=== PATIENT | female | born 1990 | race Caucasian/White ===

== ENCOUNTER 2022-11-16 17:09 | Emergency (ER) | payer SELFPAY ==
[2022-11-16 17:22] VITALS: BP 127/92; PULSE 126; RESP 14; TEMP 37.1; O2SAT 100; BMI 16.7
[2022-11-16] MEDS: ONDANSETRON 4 MG/2 ML INJ IV (17:41)
[2022-11-16 17:47] LABS: Add Manual Diff / Slide Review NO; Basophils Absolute Auto 0 /uL (0-100); Basophils Percent Auto 0.1 % (0-2); Eosinophils Absolute Auto 0 /uL (0-450); Hematocrit 39.9 % (36-46); Hemoglobin 13.9 g/dL (12.0-16.0); Lymphocytes Absolute Auto 500 /uL (1100-4500); Lymphocytes Percent Auto 3.9 % (25-40); Mean Corpuscular HGB Conc 34.7 % (30-36); Mean Corpuscular Hemoglobin 33.1 PG (26-34); Mean Corpuscular Volume 95.4 fL (80-100); Monocytes Absolute Auto 1200 /uL (0-900); Monocytes Percent Auto 9.2 % (3-14); Neutrophils Absolute Auto 11000 /uL (1500-7000); Neutrophils Percent Auto 86.8 % (50-75); Platelet Count 285 X10^3/uL (150-400); Red Blood Cell Count 4.19 X10^6/uL (4.0-5.2); White Blood Cell Count 12.7 X10^3/uL (4.5-11.0)
--- NOTE | 2022-11-16 17:47 | DI.CT.S_ITS ---
PROCEDURE: CT KIDNEY URETER BLADDER (KUB) INDICATIONS: flank pain, hx kidney stones TECHNIQUE: Axial sections were acquired from the lung bases to the pubic symphysis. Coronal and sagittal reformats were performed. For radiation dose reduction, the following was used: automated exposure control, adjustment of mA and/or kV according to patient size. COMPARISON: None. FINDINGS: Image quality: Excellent. Lung bases: Unremarkable. Heart: No significant findings. URINARY: Kidneys and ureters: There may be subtle left renal enlargement compared to the right and slight left hydronephrosis. The right kidney is normal size. No retained calculi in either kidney. No visible left-sided hydroureter and no definite ureteral calculi. Right ureter was not well seen, decompressed. Bladder: Decompressed. Normal wall thickness.. No stones. There are pelvic phleboliths. ABDOMEN: Liver: Unremarkable. Gallbladder: Unremarkable. Biliary ducts: Unremarkable. Pancreas: Unremarkable. Spleen: Unremarkable. Adrenal Glands: Unremarkable. Stomach and Bowel: Stomach, small bowel loops, and colon are unremarkable. Peritoneum: No abnormal intraperitoneal fluid. No free air. Ventral Wall: No hernia. Abdominal Nodes: No enlarged retroperitoneal or mesenteric lymph nodes. Vessels: Aorta and inferior vena cava are normal in size. PELVIS: Pelvic Organs: Anteverted uterus has a normal appearance. Ovaries are not well seen. Pelvic Nodes: No bulky adenopathy. Miscellaneous: No inguinal hernias are seen. Bones: Unremarkable. IMPRESSION: 1. Findings of mild left hydronephrosis. No visible urinary calcifications. This may indicate recently passed calculus or obstruction with non radiodense material. 2. No other acute findings. Dictated by: Vanna Bedolla M.D. on 11/16/2022 at 18:33 Approved by: Vanna Bedolla M.D. on 11/16/2022 at 18:38
--- NOTE | 2022-11-16 17:50 | ED_ITS ---
HPI - Abdominal Pain General Chief Complaint: Abdominal Pain Stated Complaint: back pain, abd pain, nausea,headache Time Seen by Provider: 11/16/22 17:39 Source: patient Mode of arrival: Ambulatory History of Present Illness HPI narrative: This is a 32-year-old female presents to the emergency department complaining of low back pain that started last night and has progressed this morning, states it started radiating around her abdomen. States that she has a history of kidney stones and this feels similar. She complains of a headache, denies dysuria, urinary frequency or urgency, endorses nausea without vomiting. Patient states that her pain started back on bilateral sides, progressed her abdomen today, she complains of lower abdominal pain, and left lower back pain. She endorses nausea without vomiting, denies history of abdominal surgery, last menstrual period was October 27, denies dysuria, urinary frequency or urgency, abnormal vaginal discharge. Endorses having a headache. Related Data Previous Rx's Medication Instructions Recorded hydrocodone 5 mg-acetaminophen 325 1 tab PO Q6H PRN pain #10 tabs 11/16/22 mg tablet ibuprofen 600 mg tablet 600 mg PO Q6H PRN pain #30 tabs 11/16/22 ondansetron 4 mg disintegrating 4 mg PO Q8H PRN nausea and 11/16/22 tablet vomiting #10 tabs Allergies Allergy/AdvReac Type Severity Reaction Status Date / Time No Known Drug Allergies Allergy Verified 11/18/22 20:36 Review of Systems Review of Systems ROS Unobtainable: All systems reviewed & are unremarkable except as noted in HPI and below Patient History Social History Smoking Status: Current every day smoker Smoking Status: Current every day smoker alcohol intake frequency: a few times a week Substance Use Type: does not use Exam Narrative Exam Narrative: Reviewed vitals signs and nursing notes. General: Pleasant, sitting upright, in no acute distress, well groomed, afebrile HEENT: symmetrical facial expressions, moist mucous membranes, neck is supple CV: regular rate and rhythm, warm extremities Respiratory: normal work of breathing, without tachypnea or hypoxia. GI: abdomen soft, nondistended, without CVA tenderness bilaterally. MSK: moves all extremities, no weakness, normal tone, ambulatory without deficit Skin: brisk capillary refill, without rash or wound Neuro: clear speech and normal cognition, A&O x3, GCS 15, no focal motor or sensation deficits Initial Vital Signs Initial Vital Signs: Vital Signs Temperature 98.8 F 11/16/22 17:22 Pulse Rate 126 H 11/16/22 17:22 Respiratory Rate 14 11/16/22 17:22 Blood Pressure 127/92 H 11/16/22 17:22 Pulse Oximetry 100 11/16/22 17:22 Oxygen Delivery Method Room Air 11/16/22 17:22 Course Orders Ordered: Discontinued Medications Hydromorphone HCl (Hydromorphone 0.5 Mg Inj) 0.5 mg IV NOW ONE Stop: 11/16/22 18:17 Last Admin: 11/16/22 18:43 Dose: 0.5 mg Documented By: MATIAS Lactated Ringer's (Lactated Ringers) 1,000 mls @ 1,000 mls/hr IV BOLUS ONE Stop: 11/16/22 18:46 Last Infusion: 11/16/22 19:12 Dose: 0 mls/hr Documented By: Admin: 11/16/22 17:55 Dose: 1,000 mls/hr Documented By: CUCA Ceftriaxone Sodium 1,000 mg/ (Sodium Chloride) 100 mls @ 200 mls/hr IV NOW ONE Stop: 11/16/22 18:57 Ketorolac Tromethamine (Ketorolac 30 Mg/Ml Vial) 15 mg IM NOW ONE Stop: 11/16/22 17:48 Last Admin: 11/16/22 17:54 Dose: 15 mg Documented By: CUCA Ondansetron HCl (Ondansetron 4 Mg Odt) 4 mg PO NOW PRN PRN Reason: Nausea And Vomiting Ondansetron HCl (Ondansetron 4 Mg/2 Ml Inj) 4 mg IV NOW PRN PRN Reason: Nausea And Vomiting Last Admin: 11/16/22 17:41 Dose: 4 mg Documented By: CUCA Trimethoprim/Sulfamethoxazole (Trimeth/Sulfa 160/800 (Ds) Tablet) 1 tab PO NOW ONE Stop: 11/16/22 19:01 Last Admin: 11/16/22 19:11 Dose: 1 tab Documented By: MATIAS Vital Signs Vital signs: Vital Signs - 8 hr 11/16/22 17:22 Temperature 98.8 F Pulse Rate 126 H Respiratory Rate 14 Blood Pressure 127/92 H Pulse Oximetry 100 Oxygen Delivery Method Room Air MDM - Abdominal Pain Lab Data 11/16/22 17:32 11/16/22 17:32 Labs: Lab Results 11/16/22 11/16/22 11/16/22 Range/Units 17:32 17:32 17:32 WBC 12.7 H (4.5-11.0) X10^3/uL RBC 4.19 (4.0-5.2) X10^6/uL Hgb 13.9 (12.0-16.0) g/dL Hct 39.9 (36-46) % MCV 95.4 (80-100) fL MCH 33.1 (26-34) PG MCHC 34.7 (30-36) % RDW 13.0 (11.6-14.8) % Plt Count 285 (150-400) X10^3/uL Neut % (Auto) 86.8 H (50-75) % Lymph % (Auto) 3.9 L (25-40) % [place] % (Auto) 9.2 (3-14) % Eos % (Auto) 0.0 L (2-4) % Baso % (Auto) 0.1 (0-2) % Neut # (Auto) 77501 H (0586-9461) /uL Lymph # (Auto) 500 L (2682-8060) /uL [place] # (Auto) 1200 H (0-900) /uL Eos # (Auto) 0 (0-450) /uL Baso # (Auto) 0 (0-100) /uL Sodium 132 L (137-145) mmol/L Potassium 4.2 (3.4-5.1) mmol/L Chloride 95 L (98-107) mmol/L Carbon Dioxide 29 (22-32) mmol/L BUN 6 L (7-17) mg/dL Creatinine 0.63 (0.52-1.04) mg/dL Estimated GFR > 60 (>60) mL/min BUN/Creatinine Ratio 9.5 (6-22) Glucose 107 H (70-100) mg/dL Lactate 0.9 (0.7-2.1) mmol/L Calcium 9.2 (8.4-10.2) mg/dL Total Bilirubin 0.6 (0.2-1.3) mg/dL AST 31 (14-36) IU/L ALT 22 (<35) IU/L Alkaline Phosphatase 103 (38-126) U/L Total Protein 8.0 (6.3-8.2) g/dL Albumin 4.3 (3.5-5.0) g/dL Globulin 3.7 (1.7-4.1) g/dL Albumin/Globulin Ratio 1.2 (1.0-2.8) Lipase 38 (23-300) U/L Urine RBC (0-5/HPF) Urine WBC (0-5/HPF) Ur Squamous Epith Cells (0-5/HPF) Ur Transition Epith Cell (0-5/HPF) Urine Bacteria (None) Ur Culture Indicated? 11/16/22 Range/Units 17:46 WBC (4.5-11.0) X10^3/uL RBC (4.0-5.2) X10^6/uL Hgb (12.0-16.0) g/dL Hct (36-46) % MCV (80-100) fL MCH (26-34) PG MCHC (30-36) % RDW (11.6-14.8) % Plt Count (150-400) X10^3/uL Neut % (Auto) (50-75) % Lymph % (Auto) (25-40) % [place] % (Auto) (3-14) % Eos % (Auto) (2-4) % Baso % (Auto) (0-2) % Neut # (Auto) (6910-9020) /uL Lymph # (Auto) (3535-4119) /uL [place] # (Auto) (0-900) /uL Eos # (Auto) (0-450) /uL Baso # (Auto) (0-100) /uL Sodium (137-145) mmol/L Potassium (3.4-5.1) mmol/L Chloride (98-107) mmol/L Carbon Dioxide (22-32) mmol/L BUN (7-17) mg/dL Creatinine (0.52-1.04) mg/dL Estimated GFR (>60) mL/min BUN/Creatinine Ratio (6-22) Glucose (70-100) mg/dL Lactate (0.7-2.1) mmol/L Calcium (8.4-10.2) mg/dL Total Bilirubin (0.2-1.3) mg/dL AST (14-36) IU/L ALT (<35) IU/L Alkaline Phosphatase (38-126) U/L Total Protein (6.3-8.2) g/dL Albumin (3.5-5.0) g/dL Globulin (1.7-4.1) g/dL Albumin/Globulin Ratio (1.0-2.8) Lipase (23-300) U/L Urine RBC 5-10/hpf H (0-5/HPF) Urine WBC 30-100/hpf H (0-5/HPF) Ur Squamous Epith Cells 5-10 /hpf H (0-5/HPF) Ur Transition Epith Cell 1-5/hpf (0-5/HPF) Urine Bacteria Many (>30) H (None) Ur Culture Indicated? Specimen cultured Point of care testing: Point of Care Testing Test Results Negative Urine Dip Bedside Urine Glucose Negative Bedside Urine Bilirubin - Negative Bedside Urine Ketone - Negative Urine Specific [place] 1.010 Bedside Urine Occult Blood +/- Bedside Urine pH 6.0 Bedside Urine Protein - Negative Bedside Urine Urobilinogen - Negative Bedside Urine Nitrite - Negative Bedside Urine Leukocytes - Negative Esterase Imaging Data CT scan - abdomen/pelvis: Radiologist's Impression: PROCEDURE:? CT KIDNEY URETER BLADDER (KUB) ? INDICATIONS:? flank pain, hx kidney stones ? TECHNIQUE:? Axial sections were acquired from the lung bases to the pubic symphysis.? Coronal and sagittal reformats were performed.? For radiation dose reduction, the following was used: ?automated exposure control, adjustment of mA and/or kV according to patient size.? ? COMPARISON:? None. ? FINDINGS:? Image quality:? Excellent.? ? Lung bases:? Unremarkable.? ? Heart:? No significant findings. ? URINARY: Kidneys and ureters:? There may be subtle left renal enlargement compared to the right and slight left hydronephrosis.? The right kidney is normal size.? No retained calculi in either kidney.? No visible left-sided hydroureter and no definite ureteral calculi.? Right ureter was not well seen, decompressed. ? Bladder:? Decompressed.? Normal wall thickness.. No stones.? There are pelvic phleboliths. ? ABDOMEN: Liver:? Unremarkable.? ? Gallbladder:? Unremarkable.? ? Biliary ducts:? Unremarkable.? ? Pancreas:? Unremarkable.? ? Spleen:? Unremarkable.? ? Adrenal Glands:? Unremarkable.? ? ? Stomach and Bowel:? Stomach, small bowel loops, and colon are unremarkable.? Peritoneum:? No abnormal intraperitoneal fluid.? No free air.? ? Ventral Wall: ? No hernia.? Abdominal Nodes:? No enlarged retroperitoneal or mesenteric lymph nodes.? Vessels:? Aorta and inferior vena cava are normal in size.? ? PELVIS: Pelvic Organs:? Anteverted uterus has a normal appearance.? Ovaries are not well seen. Pelvic Nodes:? No bulky adenopathy. Miscellaneous: No inguinal hernias are seen. ? ? ? Bones:? Unremarkable. ? IMPRESSION:? ? 1. Findings of mild left hydronephrosis.? No visible urinary calcifications.? This may indicate recently passed calculus or obstruction with non radiodense material. ? 2. No other acute findings.? Dictated by: Vanna Bedolla M.D. on 11/16/2022 at 18:33 ? ? Approved by: Vanna Bedolla M.D. on 11/16/2022 at 18:38 ? MDM Narrative Medical decision making narrative: Chief Complaint: back pain, abdominal pain Multiple etiologies for patient's complaint considered including, but not limited to: Nephrolithiasis, pyelonephritis, urinary tract infection, pancreatitis, cholecystitis, obstructive uropathy I have independently reviewed the patient's vital signs and nursing notes as well as prior records if available. Plan: Pain control with Toradol and Dilaudid, 1 L lactated Ringer's, lab work including lactate Pt presents with tachycardia and lab work shows leukocytosis Course of Care: Urine dip was negative for abnormality, patient had left CVA tenderness on exam, no abdominal tenderness to palpation, CT KUB shows mild left hydronephrosis without urinary calcifications, likely recently passed calculus, no other acute findings, her urine microscopy shows WBCs, blood and bacteria, this was cultured, patient has leukocytosis of 12.7 with a left shift, mild hyponatremia of 132 without abnormal neurologic finding on exam, normal creatinine and GFR over 60, normal liver enzymes and lipase. Patient was ester ated with 1 L of lactated Ringer's, Zofran, Dilaudid and Toradol, states that her pain was markedly improved after the Toradol in Dilaudid. She is encouraged to stay hydrated, finish her antibiotic course, will treat with Bactrim b.i.d. x7 days, Zofran, ibuprofen and hydrocodone as needed for pain. Encouraged stool softener and gave patient contact information to establish primary care locally. Social considerations that may affect disposition: none Questions are addressed and there is agreement with the plan and for follow-up. I consulted with the ED attending physician Dr. Sepulveda as needed for higher level of care considerations and they were available for discussion and recommendations regarding plan of care and diagnostic testing. Patient is appropriate for outpatient management. Discharge Plan Departure Patient Disposition: Home Clinical Impression: UTI (urinary tract infection), Hydronephrosis of left kidney Instructions: DI for Kidney Infection, DI for Kidney Stones Activity Restrictions/Additional Instructions: *You have been diagnosed with a urinary tract infection with evidence of a likely recently passed kidney stone on the left side which consists with your pa in on the left side when we felt your left kidney. I am sorry for your symptoms, hopefully you start feeling better soon, please finish these antibiotics, stay hydrated, use Zofran as needed for nausea, come back to the emergency department if you have worsening pain, nausea vomiting. There no oth er stones visualized on the CT scan today. There is a small amount of swelling to the left kidney but this should start getting better already. Please establish care with a primary care provider from your insurance or 1 of the primary care providers here at [facility], the phone number is listed below. Please take ibuprofen 600 mg every 6 hours starting tomorrow, please take it with food so that you do not develop an ulcer. Use pain pills as tolerated, use a stool softener to prevent worsening pain and constipation. Zofran as needed for nausea and antibiotic twice a day for 7 days. *What to do: *Please continue to take your regular medications as directed. [x ] New medication prescriptions sent to your pharmacy: [[facility] ] [ ] New medication written as a paper prescription [ ] No new medications given *Please call and schedule follow up with your primary care provider in 2-3 days, at least for an update. Let them know you were seen in the Emergency Department for the above problem. We will electronically transmit a record of today's note if your PCP or specialist is in our system. *If you do not have a primary care provider please contact [phone] to establish care with one of the [facility] primary care providers. *Return to the Emergency Department for worsening symptoms, inability to keep liquids down, fever greater than 101F, chills, or other concerning symptom. Prescriptions: New ondansetron 4 mg tablet,disintegrating 4 mg PO Q8H PRN (Reason: nausea and vomiting) Qty: 10 0RF hydrocodone-acetaminophen 5-325 mg tablet 1 tab PO Q6H PRN (Reason: pain) Qty: 10 0RF ibuprofen 600 mg tablet 600 mg PO Q6H PRN (Reason: pain) Qty: 30 0RF Stand Alone Forms: Patient Portal/API
[2022-11-16] MEDS: KETOROLAC 30 MG/ML VIAL 15 MG IM (17:54)
[2022-11-16] MEDS: LACTATED RINGERS 1,000 ML 1000 ML IV (17:55)
[2022-11-16 18:02] LABS: Alanine Aminotransferase 22 IU/L (<35); Albumin 4.3 g/dL (3.5-5.0); Albumin Globulin Ratio 1.2 (1.0-2.8); Alkaline Phosphatase 103 U/L (38-126); Aspartate Aminotransferase 31 IU/L (14-36); BUN Creatinine Ratio 9.5 (6-22); Bilirubin Total 0.6 mg/dL (0.2-1.3); Blood Urea Nitrogen 6 mg/dL (7-17); Calcium 9.2 mg/dL (8.4-10.2); Carbon Dioxide 29 mmol/L (22-32); Chloride 95 mmol/L (98-107); Estimated Glomerular Filt Rate > 60 mL/min (>60); Globulin 3.7 g/dL (1.7-4.1); Glucose 107 mg/dL (70-100); HEMOLYSIS < 15 (0-50); Lipase 38 U/L (23-300); Potassium 4.2 mmol/L (3.4-5.1); Sodium 132 mmol/L (137-145)
[2022-11-16 18:15] LABS: Bacteria Urine Many (>30); Culture Indicated Urine Specimen Cultured; RBC Urine 5-10/HPF (0-5/HPF); Squamous Epithelial Cell Urine 5-10 /HPF (0-5/HPF); Transitional Epi Cells Urine 1-5/HPF (0-5/HPF); WBC Urine 30-100/HPF (0-5/HPF)
[2022-11-16 18:17] LABS: Lactate (Lactic Acid) 0.9 mmol/L (0.7-2.1)
[2022-11-16] MEDS: HYDROMORPHONE 0.5 MG INJ IV (18:43)
[2022-11-16] MEDS: TRIMETH/SULFA 160/800 (DS) TABLET 1 TAB PO (19:11)
[2022-11-16 19:18] VITALS: BP 131/84; PULSE 98; RESP 18; O2SAT 100
== END 2022-11-16 19:20 | disposition home or self-care (01) ==
PROVIDERS: Emergency Medicine; Emergency Provider Nurse Practitioner Critical Care Medicine
DX: N13.30 Unspecified hydronephrosis (principal); N39.0 Urinary tract infection, site not specified; R10.9 Unspecified abdominal pain
CPT/HCPCS: 36415; 74176; 80053; 81003; 81015; 81025; 83605; 83690; 85025; 87077; 87086; 87186; 96361; 96372; 96374; 96375; 99284; J1170; J1885; J2405

== ENCOUNTER 2022-11-18 20:26 | Emergency (ER) | payer SELFPAY ==
[2022-11-18] VITALS (10 sets, daily range): BP systolic 106–152; BP diastolic 61–92; PULSE 119–127; RESP 17–18; TEMP 38.3; O2SAT 94–100
--- NOTE | 2022-11-18 20:45 | PC.NURSE ---
pt has been taking bactrim for a UTI dx on Mon today she passed out in the shower hitting her head, she thinks she was out for a few minutes which scared her as she was at home alone. pt states she thought she was starting to feel better today until the syncopal episode. her temp today was 100.4
[2022-11-18 20:52] LABS: Add Manual Diff / Slide Review NO; Basophils Absolute Auto 0 /uL (0-100); Basophils Percent Auto 0.1 % (0-2); Eosinophils Absolute Auto 0 /uL (0-450); Eosinophils Percent Auto 0.4 % (2-4); Hematocrit 33.2 % (36-46); Hemoglobin 11.4 g/dL (12.0-16.0); Lymphocytes Absolute Auto 500 /uL (1100-4500); Lymphocytes Percent Auto 5.4 % (25-40); Mean Corpuscular HGB Conc 34.2 % (30-36); Mean Corpuscular Hemoglobin 32.9 PG (26-34); Mean Corpuscular Volume 96.1 fL (80-100); Monocytes Absolute Auto 1300 /uL (0-900); Monocytes Percent Auto 13.6 % (3-14); Neutrophils Absolute Auto 7800 /uL (1500-7000); Neutrophils Percent Auto 80.5 % (50-75); Platelet Count 294 X10^3/uL (150-400); Red Blood Cell Count 3.45 X10^6/uL (4.0-5.2); Red Cell Distribution Width 13.2 % (11.6-14.8); White Blood Cell Count 9.7 X10^3/uL (4.5-11.0)
[2022-11-18] MEDS: SODIUM CHLORIDE 0.9% 1,000 ML 1000 ML IV ×2 (20:54→22:16)
[2022-11-18] MEDS: cefTRIAXone 1,000 MG in SODIUM CHLORIDE 0.9% 100 ML 200 MG IV (20:54)
[2022-11-18 21:02] LABS: HEMOLYSIS 16 (0-50); Potassium 4.7 mmol/L (3.4-5.1)
[2022-11-18 21:03] LABS: Alanine Aminotransferase 22 IU/L (<35); Albumin 3.6 g/dL (3.5-5.0); Albumin Globulin Ratio 1.1 (1.0-2.8); Alkaline Phosphatase 116 U/L (38-126); Aspartate Aminotransferase 34 IU/L (14-36); BUN Creatinine Ratio 12.9 (6-22); Bilirubin Total 0.2 mg/dL (0.2-1.3); Blood Urea Nitrogen 8 mg/dL (7-17); Calcium 8.8 mg/dL (8.4-10.2); Carbon Dioxide 26 mmol/L (22-32); Chloride 97 mmol/L (98-107); Estimated Glomerular Filt Rate > 60 mL/min (>60); Globulin 3.4 g/dL (1.7-4.1); Glucose 94 mg/dL (70-100); Lactate (Lactic Acid) 0.9 mmol/L (0.7-2.1); Sodium 131 mmol/L (137-145)
[2022-11-18] MEDS: ONDANSETRON 4 MG/2 ML INJ IV (21:10)
[2022-11-18] MEDS: KETOROLAC 30 MG/ML VIAL 15 MG IV (21:10)
[2022-11-18 21:19] LABS: Procalcitonin 0.35 ng/mL (<0.5)
--- NOTE | 2022-11-18 22:00 | ED.ABDPAIN ---
HPI - Abdominal Pain General Chief Complaint: Fever Stated Complaint: ABD Pain/Fever Time Seen by Provider: 11/18/22 20:38 Source: patient Mode of arrival: EMS History of Present Illness HPI narrative: Patient is a 32-year-old female presenting today with ongoing fever back pain and a near syncopal episode. She was seen evaluated here November 16 diagnosed with hydronephrosis of left kidney and UTI. She was placed on Bactrim and given 1 dose of Rocephin in the ED. urine culture does show E coli resistant to Bactrim. Emergency department attempted to call her a couple of times [facility] patient never received the message. She continues to have fever and back pain. She was in the shower today when she a little lightheaded she fell forward and caught herself. She knows that her hands were purple. She did not lose consciousness. She continues to have bilateral flank pain. She is having some abdominal cramping. She has been sleeping most of the day yesterday and today with decreased oral intake. No bowel movement today. Related Data Previous Rx's Medication Instructions Recorded hydrocodone 5 mg-acetaminophen 325 1 tab PO Q6H PRN pain #10 tabs 11/16/22 mg tablet ibuprofen 600 mg tablet 600 mg PO Q6H PRN pain #30 tabs 11/16/22 ondansetron 4 mg disintegrating 4 mg PO Q8H PRN nausea and 11/16/22 tablet vomiting #10 tabs sulfamethoxazole 800 1 tab PO BID 7 days #14 tabs 11/16/22 mg-trimethoprim 160 mg tablet (Bactrim DS) cephalexin 500 mg capsule 500 mg PO BID 5 days #10 caps 11/18/22 cephalexin 500 mg capsule 500 mg PO BID 7 days #14 caps 11/18/22 Allergies Allergy/AdvReac Type Severity Reaction Status Date / Time No Known Drug Allergies Allergy Verified 11/18/22 20:36 Review of Systems Review of Systems ROS Unobtainable: All systems reviewed & are unremarkable except as noted in HPI and below Patient History Social History Smoking Status: Current every day smoker Smoking Status: Current every day smoker alcohol intake frequency: a few times a week Substance Use Type: does not use Exam Initial Vital Signs Initial Vital Signs: Vital Signs Temperature 100.9 F H 11/18/22 20:27 Pulse Rate 122 H 11/18/22 20:27 Respiratory Rate 17 11/18/22 20:27 Blood Pressure 150/91 H 11/18/22 20:27 Pulse Oximetry 99 11/18/22 20:27 Oxygen Delivery Method Room Air 11/18/22 20:27 GENERAL: Alert slightly anxious 32-year-old female HEENT: Head atraumatic,EOMI, pupils reactive, face symmetric, moist mucous membranes CARDIOVASCULAR: Regular rate and rhythm without murmurs, rubs or gallops. RESPIRATORY: Breath sounds equal bilaterally, no wheezes rales or rhonchi. ABDOMEN: Soft, nontender. Normoactive bowel sounds all 4 quadrants. No guarding or rebound. : Bilateral CVA tenderness EXTREMITIES: Normal range of motion, no clubbing or edema. Neurovascularly intact NEUROLOGICAL: Alert and oriented x4. SKIN: Warm, dry, no laceration, no petechiae, no rashes or lesions. Course Orders Ordered: ED Orders 11/18/22 20:30 CBC Auto Diff [Complete Blood Count AUTO DIFF] Stat CMP [Comprehensive Metabolic Panel] Stat Lactate (Lactic Acid) Stat Procalcitonin Stat 11/18/22 20:40 EKG-12 Lead Stat 11/18/22 21:25 Blood Culture Stat Discontinued Medications Acetaminophen (Acetaminophen 325 Mg Tablet) 975 mg PO NOW ONE Stop: 11/18/22 23:16 Last Admin: 11/18/22 23:22 Dose: 975 mg Documented By: SUE Hydromorphone HCl (Hydromorphone 0.5 Mg Inj) 0.5 mg IV NOW ONE Stop: 11/18/22 23:16 Last Admin: 11/18/22 23:22 Dose: 0.5 mg Documented By: SUE Sodium Chloride (Normal Saline 0.9%) 1,000 mls @ 1,000 mls/hr IV BOLUS ONE Stop: 11/18/22 21:37 Last Infusion: 11/18/22 22:15 Dose: 0 mls/hr Documented By: Admin: 11/18/22 20:54 Dose: 1,000 mls/hr Documented By: SUE Ceftriaxone Sodium 1,000 mg/ (Sodium Chloride) 100 mls @ 200 mls/hr IV NOW ONE Stop: 11/18/22 20:39 Last Infusion: 11/18/22 22:00 Dose: 0 mls/hr Documented By: Admin: 11/18/22 20:54 Dose: 200 mls/hr Documented By: SUE Sodium Chloride (Normal Saline 0.9%) 1,000 mls @ 1,000 mls/hr IV BOLUS ONE Stop: 11/18/22 23:08 Last Infusion: 11/18/22 23:27 Dose: 0 mls/hr Documented By: Admin: 11/18/22 22:16 Dose: 1,000 mls/hr Documented By: SUE Ketorolac Tromethamine (Ketorolac 30 Mg/Ml Vial) 15 mg IV NOW ONE Stop: 11/18/22 20:39 Last Admin: 11/18/22 21:10 Dose: 15 mg Documented By: SUE Morphine Sulfate (Morphine 2 Mg/Ml Inj) 2 mg IV NOW ONE Stop: 11/18/22 22:10 Last Admin: 11/18/22 22:16 Dose: 2 mg Documented By: SUE Ondansetron HCl (Ondansetron 4 Mg/2 Ml Inj) 4 mg IV NOW ONE Stop: 11/18/22 20:39 Last Admin: 11/18/22 21:10 Dose: 4 mg Documented By: SUE Vital Signs Vital signs: Vital Signs - 8 hr 11/18/22 21:30 11/18/22 22:00 11/18/22 22:30 Respiratory Rate Blood Pressure 119/70 107/61 106/71 11/18/22 23:00 11/18/22 23:30 11/19/22 00:00 Respiratory Rate 18 Blood Pressure 113/73 117/70 109/71 MDM - Abdominal Pain Lab Data 11/18/22 20:30 11/18/22 20:30 Labs: Lab Results 11/18/22 11/18/22 11/18/22 Range/Units 20:30 20:30 20:30 WBC 9.7 (4.5-11.0) X10^3/uL RBC 3.45 L (4.0-5.2) X10^6/uL Hgb 11.4 L (12.0-16.0) g/dL Hct 33.2 L (36-46) % MCV 96.1 (80-100) fL MCH 32.9 (26-34) PG MCHC 34.2 (30-36) % RDW 13.2 (11.6-14.8) % Plt Count 294 (150-400) X10^3/uL Neut % (Auto) 80.5 H (50-75) % Lymph % (Auto) 5.4 L (25-40) % [place] % (Auto) 13.6 (3-14) % Eos % (Auto) 0.4 L (2-4) % Baso % (Auto) 0.1 (0-2) % Neut # (Auto) 7800 H (7221-1005) /uL Lymph # (Auto) 500 L (3354-7334) /uL [place] # (Auto) 1300 H (0-900) /uL Eos # (Auto) 0 (0-450) /uL Baso # (Auto) 0 (0-100) /uL Sodium 131 L (137-145) mmol/L Potassium 4.7 (3.4-5.1) mmol/L Chloride 97 L (98-107) mmol/L Carbon Dioxide 26 (22-32) mmol/L BUN 8 (7-17) mg/dL Creatinine 0.62 (0.52-1.04) mg/dL Estimated GFR > 60 (>60) mL/min BUN/Creatinine Ratio 12.9 (6-22) Glucose 94 (70-100) mg/dL Lactate 0.9 (0.7-2.1) mmol/L Calcium 8.8 (8.4-10.2) mg/dL Total Bilirubin 0.2 (0.2-1.3) mg/dL AST 34 (14-36) IU/L ALT 22 (<35) IU/L Alkaline Phosphatase 116 (38-126) U/L Total Protein 7.0 (6.3-8.2) g/dL Albumin 3.6 (3.5-5.0) g/dL Globulin 3.4 (1.7-4.1) g/dL Albumin/Globulin Ratio 1.1 (1.0-2.8) Procalcitonin (<0.5) ng/mL 11/18/22 Range/Units 20:30 WBC (4.5-11.0) X10^3/uL RBC (4.0-5.2) X10^6/uL Hgb (12.0-16.0) g/dL Hct (36-46) % MCV (80-100) fL MCH (26-34) PG MCHC (30-36) % RDW (11.6-14.8) % Plt Count (150-400) X10^3/uL Neut % (Auto) (50-75) % Lymph % (Auto) (25-40) % [place] % (Auto) (3-14) % Eos % (Auto) (2-4) % Baso % (Auto) (0-2) % Neut # (Auto) (8709-2862) /uL Lymph # (Auto) (4138-6780) /uL [place] # (Auto) (0-900) /uL Eos # (Auto) (0-450) /uL Baso # (Auto) (0-100) /uL Sodium (137-145) mmol/L Potassium (3.4-5.1) mmol/L Chloride (98-107) mmol/L Carbon Dioxide (22-32) mmol/L BUN (7-17) mg/dL Creatinine (0.52-1.04) mg/dL Estimated GFR (>60) mL/min BUN/Creatinine Ratio (6-22) Glucose (70-100) mg/dL Lactate (0.7-2.1) mmol/L Calcium (8.4-10.2) mg/dL Total Bilirubin (0.2-1.3) mg/dL AST (14-36) IU/L ALT (<35) IU/L Alkaline Phosphatase (38-126) U/L Total Protein (6.3-8.2) g/dL Albumin (3.5-5.0) g/dL Globulin (1.7-4.1) g/dL Albumin/Globulin Ratio (1.0-2.8) Procalcitonin 0.35 (<0.5) ng/mL ECG Data Interpretation: Normal sinus rhythm rate 115 W[place] interval 120 QRS 70 QTC [address] changes or T-wave inversions [facility] Narrative Medical decision making narrative: Patient 32-year-old female presents today with ongoing fever and back pain. Diagnosed with pyelonephritis [address] days [address] scan which does show some hydronephrosis but no nephrolithiasis. She never switched over to a correct antibiotic she is been taking Bactrim but there is significant resistance. She is given a 2nd dose of Rocephin she had her 1st dose during the 1st visit 2 days ago. Blood work is overall reassuring without significant leukocytosis or lactic acid or other evidence of sepsis. She is given 2 L of IV fluids pain medication as well which seems to help. At this time I do not think there is a need to admit her to the hospital she can be started on oral Keflex has an outpatient. This is appropriate based on recent culture and sensitivity. Discharge Plan Departure Patient Disposition: Home Clinical Impression: Pyelonephritis Instructions: DI for Kidney Infection Activity Restrictions/Additional Instructions: *You have been diagnosed with kidney infection *What to do: At this time you should start feeling better on the appropriate antibiotic. Stop taking the Septra *Continue to take medications as directed Keflex 500 mg BID x 7 days *Follow up with your primary care provider in 2-3 days or call [phone] *Return to ER if you should have inability to take antibiotic persistent vomiting worsening pain or any new, worsening or concerning symptoms Prescriptions: New cephalexin 500 mg capsule 500 mg PO BID 7 Days Qty: 14 0RF No Action sulfamethoxazole-trimethoprim [Bactrim DS] 800-160 mg tablet 1 tab PO BID 7 Days Qty: 14 0RF ondansetron 4 mg tablet,disintegrating 4 mg PO Q8H PRN (Reason: nausea and vomiting) Qty: 10 0RF hydrocodone-acetaminophen 5-325 mg tablet 1 tab PO Q6H PRN (Reason: pain) Qty: 10 0RF ibuprofen 600 mg tablet 600 mg PO Q6H PRN (Reason: pain) Qty: 30 0RF cephalexin 500 mg capsule 500 mg PO BID 5 Days Qty: 10 0RF Stand Alone Forms: Patient Portal/API, Work Release Note
[2022-11-18] MEDS: MORPHINE 2 MG/ML INJ IV (22:16)
[2022-11-18] MEDS: HYDROMORPHONE 0.5 MG INJ IV (23:22)
[2022-11-18] MEDS: ACETAMINOPHEN 325 MG TABLET 975 MG PO (23:22)
[2022-11-19] VITALS: BP 109/71
== END 2022-11-19 00:15 | disposition home or self-care (01) ==
PROVIDERS: Emergency Provider Emergency Medicine
DX: N12 Tubulo-interstitial nephritis, not specified as acute or chronic (principal); R07.9 Chest pain, unspecified
CPT/HCPCS: 36415; 80053; 83605; 84145; 85025; 87040; 93005; 93010; 96361; 96365; 96375; 99284; J0696; J1170; J1885; J2270; J2405